=== PATIENT | male | born 1930 | race Caucasian/White ===

== ENCOUNTER 2019-06-13 13:51 | Emergency (ER) | payer MEDICARE ==
--- NOTE | 2019-06-13 15:41 | RAD ---
RIGHT FEMUR: 06/13/19 Four views. HISTORY: Trauma. Right hip prosthesis. Prosthesis appears adequately positioned. No evidence of fracture. Degenerative change at the knee. IMPRESSION: No acute abnormality. POS: OFF
--- NOTE | 2019-06-13 15:43 | RAD ---
RIGHT KNEE: 06/13/19 HISTORY: Trauma. Degenerative changes at the knee. Loss of medial joint space. Degenerative spurring from all compartm ents. No joint effusion. No fracture. The bones show prominent osteopenia. A mottled appearance of the proximal tibia and fibula is especia lly pronounced. Chronic infiltrative changes such as multiple myeloma are considerations. IMPRESSION: No acute process. Abnormal mottled appearance of the proximal tibia. Recommend clinical correlation. POS: OFF
--- NOTE | 2019-06-13 15:47 | RAD ---
LEFT FEMUR: 06/13/19 Total of four views. HISTORY: Trauma. Left hip prosthesis appears adequate position. No fracture. No osseous abnormality. IMPRESSION: No acute findings. POS: OFF
--- NOTE | 2019-06-13 15:48 | RAD ---
AP PELVIS: 06/13/19 HISTORY: Trauma. Bilateral hip prostheses appear adequately positioned. Pelvis appears intact. No osseous abnormality. IMPRESSION: No acute findings. POS: OFF
== END 2019-06-13 17:55 | disposition home or self-care (01) ==
LOC: ERS 13:51
DX: M79.661 Pain in right lower leg (principal); M25.561 Pain in right knee; D64.9 Anemia, unspecified; N40.0 Benign prostatic hyperplasia without lower urinary tract symptoms; I10 Essential (primary) hypertension; E11.9 Type 2 diabetes mellitus without complications; Z79.899 Other long term (current) drug therapy; Z79.84 Long term (current) use of oral hypoglycemic drugs; W05.0XXA Fall from non-moving wheelchair, initial encounter
CPT/HCPCS: 72170

== ENCOUNTER 2019-09-04 14:35 | Emergency (ER) | payer MEDICARE ==
--- NOTE | 2019-09-04 16:09 | CT ---
CT BRAIN WITHOUT CONTRAST: HISTORY:Altered mental status COMPARISON:None FINDINGS: There are foci of decreased attenuation in the periventricular white matter, consistent with chronic small vessel ischemic disease. No evidence of acute infarct, hemorrhage, midline shift or abnormal extra-axial fluid collections is seen. The ventricular size is appropriate and the basilar cisterns are patent. The bony calvarium is intact. The visualized paranasal sinuses and mastoid air cells are well aerated. IMPRESSION: No CT evidence of acute intracranial process.
--- NOTE | 2019-09-04 16:12 | RAD ---
EXAM: Single view of the chest HISTORY: Altered mental status COMPARISON: None FINDINGS: Single view of the chest shows a normal sized cardiomediastinal silhouette. There is no zee dence of consolidation, mass, or pleural effusion. The bones are unremarkable. IMPRESSION: No evidence of acute cardiopulmonary disease
--- NOTE | 2019-09-04 16:13 | RAD ---
Exam: Single view of the pelvis HISTORY: Altered mental status and fall COMPARISON: 06/13/2019 FINDINGS: A single view the pelvis shows no evidence of acute fracture or dislocation. The patient moss s bilateral hip prostheses without perihardware lucency. IMPRESSION: No evidence of acute osseous abnormality.
[2019-09-04 17:18] LABS: Bilirubin Negative (Negative); Blood, Urine Negative (Negative); Clarity Clear (Clear); Glucose, Urine (Dipstick) Normal (Negative); Leukocyte Negative Leu/uL (Negative); Nitrite Negative (Negative); Protein, Urine (Dipstick) Negative (Neg-Trace); Urobilinogen Normal mg/dL (Less than 2)
[2019-09-04 17:26] LABS: #Eosinphils 0.2 thou/uL (0.0-0.7); #Lymphocytes 1.8 thou/uL (1.20-3.40); #Monocytes 0.4 thou/uL (0.11-0.59); #Neutrophils 3.3 thou/uL (1.40-6.50); %Basophils 0.2 % (0.0-1.0); %Eosinophils 3.3 % (0.0-10.0); %Lymphocytes 31.3 % (21.0-51.0); %Monocytes 7.6 % (0.0-10.0); %Neutrophils 57.6 % (42.0-75.0); Hemoglobin 11.4 g/dL (14.0-18.0); Mean Corpuscular HGB CONC 32.6 g/dL (32.0-36.0); Mean Corpuscular Hemoglobin 29.6 pg (27.0-31.0); Mean Corpuscular Volume 90.8 fL (78.0-98.0); Mean Platelet Volume 6.2 fL (7.4-10.4); Platelet Count 123 thou/uL (130-400); RBC Distribution Width 14.9 % (11.5-14.5); Red Blood Cell (RBC) Count 3.85 mill/uL (4.70-6.10); White Blood Cell (WBC) Count 5.7 thou/uL (4.8-10.8)
[2019-09-04 17:50] LABS: ALT (SGPT) 7 U/L (8-55); AST (SGOT) 11 U/L (5-34); Albumin 3.5 g/dL (3.4-4.8); Alkaline Phosphatase 62 U/L (40-110); Anion Gap 8 mmol/L (10-20); BUN (Urea Nitrogen) 16 mg/dL (8.4-25.7); Bilirubin, Total 0.3 mg/dL (0.2-1.2); CK (CPK) 35 U/L (30-200); Calc. Creatinine Clearance 0 mL/min (70-130); Calcium 9.1 mg/dL (7.8-10.44); Carbon Dioxide 28 mmol/L (23-31); Chloride 107 mmol/L (98-107); Estimated GFR-MDRD 69; Globulin 3.1 g/dL (2.4-3.5); Glucose 143 mg/dL (83-110); Magnesium 1.8 mg/dL (1.6-2.6); Protein, Total 6.6 g/dL (5.8-8.1); Sodium 139 mmol/L (136-145)
== END 2019-09-04 18:33 | disposition home or self-care (01) ==
LOC: ERS 14:35
DX: R44.3 Hallucinations, unspecified (principal); D64.9 Anemia, unspecified; I10 Essential (primary) hypertension; E11.51 Type 2 diabetes mellitus with diabetic peripheral angiopathy without gangrene; E55.9 Vitamin D deficiency, unspecified
CPT/HCPCS: 36415; 51701; 70450; 71045; 72170; 80053; 81003; 82550; 83735; 85025; 93005

== ENCOUNTER 2019-09-07 15:48 | Outpatient (CLI) | payer MEDICARE ==
--- NOTE | 2019-09-07 16:46 | RAD ---
XR Bone Survey Adult STANDARD Cervical spine 1 view, thoracic spine one view, lumbar spine one view, pelvis one view, right hip 1 v iew, right femur 1 view, left femur, one view, left hip 1 view, right tibia 1 view, left tibia 1 view, of formed 1 view, left upper arm 1 view, right upper arm 1 view, right forearm 1 view History: Multiple myeloma Comparison: Pelvis radiograph August 6019 Findings: Cervical and thoracic spine are without abnormal lytic focus. 40% height loss of the L1 essence tebral body with mild dextro scoliosis lumbar spine. Multilevel degenerative disc space disease. Bilateral hip arthroplasties are in place. Mild enthesopathic change of the right iliopsoas tendon. There is a cortical lucency of the medial margin mid right tibial diaphysis. Multiple small intramedu llary lucencies of the distal left tibial metadiaphysis. Numerous cortical and medullary lucencies of the distal left radial metadiaphysis. Same is true for t he distal right radial and ulnar metadiaphyses. Advanced degenerative disc space disease throughout the cervical spine with facet arthropathy. No magen varial lucencies are appreciated. Impression: 1. Bilateral distal radial cortical and medullary lucencies not definitively multiple myeloma and cou ld be sequelae of demineralization given its relative symmetric appearance. 2. Single small suspicious lytic focus within the right medial mid tibial cortex.
== END 2019-09-07 15:49 | disposition home or self-care (01) ==
LOC: BICRAD 15:48
PROVIDERS: ATTEND Internal Medicine Hematology & Oncology
DX: C90.00 Multiple myeloma not having achieved remission (principal)
CPT/HCPCS: 36415; 77075; 80048; 82232; 83036; 83883; 84165

== ENCOUNTER 2020-02-10 17:53 | Inpatient (IN) | payer MEDICARE ==
[2020-02-10 18:44] LABS: #Eosinphils 0.1 thou/uL (0.0-0.7); #Lymphocytes 1.5 thou/uL (1.20-3.40); #Monocytes 0.7 thou/uL (0.11-0.59); #Neutrophils 7.3 thou/uL (1.40-6.50); %Basophils 0.1 % (0.0-1.0); %Eosinophils 0.7 % (0.0-10.0); %Lymphocytes 15.9 % (21.0-51.0); %Monocytes 6.9 % (0.0-10.0); %Neutrophils 76.4 % (42.0-75.0); Hemoglobin 13.9 g/dL (14.0-18.0); Mean Corpuscular HGB CONC 32.4 g/dL (32.0-36.0); Mean Corpuscular Hemoglobin 30.5 pg (27.0-31.0); Mean Corpuscular Volume 94.2 fL (78.0-98.0); Mean Platelet Volume 6.8 fL (7.4-10.4); Platelet Count 136 thou/uL (130-400); RBC Distribution Width 11.8 % (11.5-14.5); Red Blood Cell (RBC) Count 4.54 mill/uL (4.70-6.10); White Blood Cell (WBC) Count 9.6 thou/uL (4.8-10.8)
[2020-02-10 18:53] LABS: Bacteria/HPF None Seen HPF (None Seen); Bilirubin Negative (Negative); Blood, Urine Negative (Negative); Clarity Clear (Clear); Glucose, Urine (Dipstick) Normal (Negative); Leukocyte 25 Leu/uL (Negative); Nitrite Negative (Negative); Protein, Urine (Dipstick) 20 mg/dL (Neg-Trace); RBC/HPF 0-3 HPF (0-3); Squamous Epithelial None Seen HPF (0-3); Urobilinogen Normal mg/dL (Less than 2); WBC/HPF 0-3 HPF (0-3)
[2020-02-10 19:05] LABS: ALT (SGPT) 12 U/L (8-55); AST (SGOT) 16 U/L (5-34); Albumin 3.8 g/dL (3.4-4.8); Alkaline Phosphatase 72 U/L (40-110); Anion Gap 14 mmol/L (10-20); BUN (Urea Nitrogen) 17 mg/dL (8.4-25.7); Bilirubin, Total 0.6 mg/dL (0.2-1.2); Calc. Creatinine Clearance 0 mL/min (70-130); Calcium 9.4 mg/dL (7.8-10.44); Carbon Dioxide 25 mmol/L (23-31); Chloride 104 mmol/L (98-107); Estimated GFR-MDRD 57; Globulin 3.2 g/dL (2.4-3.5); Glucose 130 mg/dL (83-110); Sodium 139 mmol/L (136-145)
--- NOTE | 2020-02-10 19:08 | RAD ---
LEFT HIP TWO VIEWS: 02/10/20 INDICATIONS: Left hip pain. COMPARISON: None. FINDINGS: There is a left hip endoprosthesis in place. There is moderate degenerative change involving the left acetabulum. No acute fracture is evident. IMPRESSION: Left hip endoprosthesis. No acute fracture. Moderate degenerative change of the left acetabulum. POS: BH
--- NOTE | 2020-02-10 19:10 | RAD ---
CHEST ONE VIEW: 02/10/20 HISTORY: Altered mental status. COMPARISON: Radiograph 2019. FINDINGS: Pulmonary arteries are dilated. Heart size is enlarged. No pneumothorax. Likely trace effusions. Mild pulmonary venous congestion. IMPRESSION: 1. Cardiomegaly with small effusions and mild pulmonary venous congestion. 2. Pulmonary hypertension. POS: HOME
[2020-02-10 19:20] LABS: Magnesium 1.8 mg/dL (1.6-2.6)
--- NOTE | 2020-02-10 19:42 | CT ---
CT OF THE BRAIN WITHOUT CONTRAST: 02/10/20 INDICATIONS: Altered mental status in an 89-year-old male. COMPARISON: Prior exam dated September 04, 2019. FINDINGS: There is generalized cerebral and cerebellar atrophy with moderate chronic small vessel white matter ischemic change. Septum pellucidum and third ventricle appear midline. No definite acute infarct, hem orrhage, or hydrocephalus is present. Mastoid air cells and paranasal sinuses are clear. Skull is int act. IMPRESSION: No acute intracranial abnormality. POS: BH
[2020-02-10 23:23] LABS: Troponin I Less than 0.010 ng/mL (< 0.028)
[2020-02-11 00:03] VITALS: BMI 26.8
[2020-02-11] MEDS ORDERED: cloNIDine 0.1 MG TAB PO PRN (01:05)
[2020-02-11] MEDS ORDERED: hydrALAZINE 20 MG/ML VIAL SLOW IVP PRN (01:05)
[2020-02-11] MEDS ORDERED: Ondansetron PF 4 MG/2 ML Vial IVP PRN (01:05)
[2020-02-11] MEDS ORDERED: Morphine 2 MG/ML SYRINGE SLOW IVP PRN (01:05)
[2020-02-11] MEDS ORDERED: Labetalol HCl 100 MG/20 ML VIAL SLOW IVP PRN (01:05)
[2020-02-11] MEDS ORDERED: Promethazine HCl 12.5 MG in Sodium Chloride 0.9% 50 ML IVPB PRN (01:05)
[2020-02-11] MEDS ORDERED: Dextrose 5% in Water 1,000 ML IV PRN (01:06)
[2020-02-11] MEDS ORDERED: Dextrose 50% Abboject 50 ML SYRINGE SLOW IVP PRN (01:06)
[2020-02-11] MEDS ORDERED: HYDROcodone/Acetaminophen 5/325 mg Tablet PO PRN (01:07)
[2020-02-11] MEDS ORDERED: Bisacodyl 5 MG TAB PO PRN (01:07)
[2020-02-11] MEDS ORDERED: Acetaminophen 325 MG TAB PO PRN (01:07)
[2020-02-11] MEDS ORDERED: Guaifenesin DM 100-10/5 ML UDCUP PO PRN (01:07)
[2020-02-11] MEDS ORDERED: Sodium Chloride 0.9% 1,000 ML IV SCH (01:15)
--- NOTE | 2020-02-11 01:15 | PDOC.HHP ---
Hospitalist HPI - History of Present Illness Altered mental status History of Present Illness: Patient is an 89 year old male with PMH diabetes, dementia, PVD, BPH, HTN who presents to ED for altered mental status and fall. Lg is a resident at [facility] and experienced a fall in bathroom with possible head trauma, he was found to be lethargic and unable to recount events. He is on [facility] ( keflex[facility], also has had on and off diarrhea for a few weeks per [facility] notes reviewed. Patient evaluated in ED, UA no longer shows UTI (not specific since already on ABX). On my exam patient is AOx1 , speaking but confused, not aware of situation currently in. Patient to be admitted for fall, UTI, encephalopathy. Hospitalist ROS - Review of Systems ROS unobtainable: due to mental status Hospitalist History - Past Medical History Other Medical History: Notes: anemia, PVD, vit d deficiency, BPH, HTN, DM type 2, Decub to L buttock, Flu vaccine not up to date, Tetanus not up to date, Pneumococcal vaccine up to date. verified with [place] paperwork 02/10/2020. - Past Surgical History Other Surgical History: B hip surgery. verified with [facility] paperwork 02/10/2020. - Family History Family History: reports: no pertinent history - Social History Other Social History: Patient denies alcohol use, Patient denies drug use, Patient has no smoking history, Lives in senior living care facility, Name of institution [facility]. verified 02/10/2020. - Exam General Appearance: NAD, awake alert General - other findings: altered mental status Eye: PERRL, anicteric sclera ENT: normocephalic atraumatic, no oropharyngeal lesions, moist mucosa Neck: supple, symmetric, no JVD, no thyromegaly, no lymphadenopathy, no carotid bruit Heart: RRR, no murmur, no gallops, no rubs, normal peripheral pulses Respiratory: CTAB, no wheezes, no rales, no ronchi, normal chest expansion, no tachypnea, normal percussion Gastrointestinal: soft, non-tender, non-distended, normal bowel sounds, no palpable masses, no hepatomegaly, no splenomegaly, no bruit Extremities: no cyanosis, no clubbing, no edema Skin: normal turgor, no lesions, no rashes Skin - other findings: stg 1 ulcer buttock Neurological: cranial nerve grossly intact, normal sensation to touch, no weakness, no focal deficits, no new deficit Musculoskeletal: normal tone, normal strength, no muscle wasting Psychiatric: normal affect, normal behavior, A&O x 3 Hospitalist Results - Labs Result Diagrams: 02/10/20 18:37 02/10/20 18:37 Lab results: WBC 9.6 thou/uL (4.8-10.8) 02/10/20 18:37 Hgb 13.9 g/dL (14.0-18.0) L 02/10/20 18:37 Hct 42.7 % (42.0-52.0) 02/10/20 18:37 MCV 94.2 fL (78.0-98.0) 02/10/20 18:37 Plt Count 136 thou/uL (130-400) 02/10/20 18:37 Neutrophils % 76.4 % (42.0-75.0) H 02/10/20 18:37 Sodium 139 mmol/L (136-145) 02/10/20 18:37 Potassium 4.0 mmol/L (3.5-5.1) 02/10/20 18:37 Chloride 104 mmol/L (98-107) 02/10/20 18:37 Carbon Dioxide 25 mmol/L (23-31) 02/10/20 18:37 BUN 17 mg/dL (8.4-25.7) 02/10/20 18:37 Creatinine 1.21 mg/dL (0.7-1.3) 02/10/20 18:37 Glucose 130 mg/dL (83-110) H 02/10/20 18:37 Calcium 9.4 mg/dL (7.8-10.44) 02/10/20 18:37 Total Bilirubin 0.6 mg/dL (0.2-1.2) 02/10/20 18:37 AST 16 U/L (5-34) 02/10/20 18:37 ALT 12 U/L (8-55) 02/10/20 18:37 Alkaline Phosphatase 72 U/L (40-110) 02/10/20 18:37 Ammonia 29 umol/L (18-72) 02/10/20 20:43 Creatine Kinase 48 U/L (30-200) 02/10/20 18:37 Troponin I Less than 0.010 ng/mL (< 0.028) 02/10/20 22:50 Serum Total Protein 7.0 g/dL (5.8-8.1) 02/10/20 18:37 Albumin 3.8 g/dL (3.4-4.8) 02/10/20 18:37 Urine Ketones Negative mg/dL (Negative) 02/10/20 18:30 Urine Blood Negative (Negative) 02/10/20 18:30 Urine Nitrite Negative (Negative) 02/10/20 18:30 Ur Leukocyte Esterase 25 Michelle/uL (Negative) 02/10/20 18:30 Urine RBC 0-3 HPF (0-3) 02/10/20 18:30 Urine WBC 0-3 HPF (0-3) 02/10/20 18:30 Ur Squamous Epith Cells None Seen HPF (0-3) 02/10/20 18:30 Urine Bacteria None Seen HPF (None Seen) 02/10/20 18:30 Additional comment: VITAL SIGNS Wed February 10, 2020 22:23 CHIQUIS Almaraz, Ayde BP: 149/79 Pulse: 89 Resp: 20 Temp: 99.1 (Oral) Pain: 0 O2 sat: 96 on (Room Air) Time: 02/10/2020 22:23. - EKG Interpretation EKG: NSR 78 bpm, nonspecific ST abnormalities Hospitalist H&P A/P - Plan Plan: Patient is an 89 year old male with PMH diabetes, dementia, PVD, BPH, HTN who presents to ED for altered mental status and fall. # UTI - UA negative but if studies performed at [facility] can presume this is an aspect of what is happening, send culture and start abx # metabolic encephalopathy - presumed secondary to UTI, continue treatment # fall - presumed due to UTI, follow final CT head, anticoag continued for now # DM - SSI, continue glipizide # HTN - continue home meds, PRNs in chart # anticoagulated status - unsure why on anticoag as afib or other similar dx not in [facility] records,continue xarelto for now and can make [facility] decision on risks/benefits with primary care once back in [facility] care facility, no bleeding on head CT # debility - PT/OT and case management consulted to determine if SNF or other post acute care will be needed GI ppx - PPI DVT ppx - xarelto code - presume full, no DNR sent from [facility] or clarification and patient unable to answer currently contact ruben baabtunde daughter in law [phone],
[2020-02-11] MEDS: cefTRIAXone\\ROCEPHIN 1 GM in Sodium Chloride 0.9% 100 ML IVPB SCH (01:49)
[2020-02-11 02:20] LABS: Troponin I 0.022 ng/mL (< 0.028)
[2020-02-11 05:25] LABS: Anion Gap 15 mmol/L (10-20); BUN (Urea Nitrogen) 15 mg/dL (8.4-25.7); Calc. Creatinine Clearance 67 mL/min (70-130); Calcium 8.5 mg/dL (7.8-10.44); Carbon Dioxide 19 mmol/L (23-31); Chloride 107 mmol/L (98-107); Estimated GFR-MDRD 72; Glucose 126 mg/dL (83-110); Magnesium 1.7 mg/dL (1.6-2.6); Potassium 3.9 mmol/L (3.5-5.1); Sodium 137 mmol/L (136-145)
[2020-02-11 06:47] LABS: #Eosinphils 0.2 thou/uL (0.0-0.7); #Lymphocytes 1.5 thou/uL (1.20-3.40); #Monocytes 0.6 thou/uL (0.11-0.59); #Neutrophils 4.9 thou/uL (1.40-6.50); %Basophils 0.2 % (0.0-1.0); %Eosinophils 2.2 % (0.0-10.0); %Lymphocytes 20.5 % (21.0-51.0); %Monocytes 8.4 % (0.0-10.0); %Neutrophils 68.6 % (42.0-75.0); Hemoglobin 12.8 g/dL (14.0-18.0); Mean Corpuscular Hemoglobin 31.9 pg (27.0-31.0); Mean Corpuscular Volume 93.9 fL (78.0-98.0); Platelet Count 110 thou/uL (130-400); Platelet Morphology Comment Appears Decreased; RBC Distribution Width 11.8 % (11.5-14.5); RBC Morphology Normal; Red Blood Cell (RBC) Count 4.01 mill/uL (4.70-6.10); White Blood Cell (WBC) Count 7.2 thou/uL (4.8-10.8)
[2020-02-11] MEDS: Lisinopril 10 MG TAB PO SCH (09:30)
[2020-02-11] MEDS: Rivaroxaban 10 MG TAB PO SCH (09:30)
[2020-02-11] MEDS: Tamsulosin HCl 0.4 MG CAP PO SCH (09:32)
[2020-02-11] MEDS: glipiZIDE 5 MG TAB PO SCH ×2 (09:35→21:21)
[2020-02-11] MEDS: Ferrous Sulfate 325 MG TAB PO SCH (09:36)
[2020-02-11] MEDS: Pantoprazole 40 MG GRANULES PACKET PO SCH (09:36)
[2020-02-11] MEDS: Senokot S 8.6-50 MG TAB PO SCH ×2 (09:36→21:21)
[2020-02-11] MEDS: HumaLOG 300 UNITS/3 ML VIAL SC PRN (11:54)
[2020-02-11] MEDS: Mirtazapine 15 MG TAB PO SCH (21:21)
[2020-02-12] MEDS: cefTRIAXone\\ROCEPHIN 1 GM in Sodium Chloride 0.9% 100 ML IVPB SCH (01:58)
[2020-02-12 05:11] LABS: Anion Gap 14 mmol/L (10-20); BUN (Urea Nitrogen) 14 mg/dL (8.4-25.7); Calc. Creatinine Clearance 67 mL/min (70-130); Carbon Dioxide 20 mmol/L (23-31); Chloride 107 mmol/L (98-107); Estimated GFR-MDRD 72; Glucose 104 mg/dL (83-110); Magnesium 1.8 mg/dL (1.6-2.6); Potassium 3.7 mmol/L (3.5-5.1); Sodium 137 mmol/L (136-145)
[2020-02-12 05:37] LABS: Band 1 % (5-11); Eosinophils 4 % (0-10); Hemoglobin 12.9 g/dL (14.0-18.0); Hypochromia SLIGHT = 6-15 cells (100X) (0-5/hpf); Lymphocytes 17 % (21-51); MDiff Complete? YES; Mean Corpuscular HGB CONC 32.2 g/dL (32.0-36.0); Mean Corpuscular Hemoglobin 30.8 pg (27.0-31.0); Mean Corpuscular Volume 95.6 fL (78.0-98.0); Mean Platelet Volume 7.1 fL (7.4-10.4); Monocytes 9 % (0-10); Neutrophil 69 % (42-75); Platelet Count 113 thou/uL (130-400); Platelet Morphology Comment Appears Decreased; RBC Distribution Width 12.2 % (11.5-14.5); Red Blood Cell (RBC) Count 4.19 mill/uL (4.70-6.10); White Blood Cell (WBC) Count 6.1 thou/uL (4.8-10.8)
[2020-02-12] MEDS: glipiZIDE 5 MG TAB PO SCH ×2 (08:39→20:43)
[2020-02-12] MEDS: Ferrous Sulfate 325 MG TAB PO SCH (08:40)
[2020-02-12] MEDS: Tamsulosin HCl 0.4 MG CAP PO SCH (08:40)
[2020-02-12] MEDS: Lisinopril 10 MG TAB PO SCH (08:40)
[2020-02-12] MEDS: Rivaroxaban 10 MG TAB PO SCH (08:41)
[2020-02-12] MEDS: Senokot S 8.6-50 MG TAB PO SCH ×2 (08:41→20:43)
[2020-02-12] MEDS: Pantoprazole 40 MG GRANULES PACKET PO SCH (08:41)
--- NOTE | 2020-02-12 09:58 | PDOC.HOSPP ---
- Subjective Encounter Date: 02/12/20 Encounter Time: 09:35 Subjective: f/u for fall with suspected UTI on Rocephin. Nursing reports pt alert but remains confused, tolerating diet and vitals are stable. - Objective Vital Signs & Weight: Vital Signs (12 hours) Temp Pulse Resp BP Pulse Ox 02/12/20 07:52 98.3 F 63 18 149/69 H 95 02/12/20 04:32 98.1 F 71 16 147/68 H 97 02/11/20 23:56 98.6 F 85 18 140/72 94 L Weight Weight 198 lb I&O: 02/11/20 02/12/20 02/13/20 06:59 06:59 06:59 Intake Total 300 Output Total 450 Balance -150 Result Diagrams: 02/12/20 04:21 02/12/20 04:21 Additional Labs: Accuchecks 02/12/20 02/11/20 02/11/20 04:59 20:22 16:26 POC Glucose 122 H 138 H 120 H 02/11/20 10:36 POC Glucose 172 H Microbiology 02/05/20 12:00 Urine clean catch Urine Culture - Final Laboratory Tests 02/10/20 02/11/20 18:37 04:54 Plt Count 136 110 L Radiology Reviewed by me: Yes (CT brain - no acute process) EKG Reviewed by me: Yes (Tele - SR) Hospitalist ROS - Medication Medications: Active Medications Generic Name Dose Route Start Last Admin Trade Name Freq PRN Reason Stop Dose Admin Ferrous Sulfate 325 mg 02/11/20 09:00 02/12/20 08:40 Feosol PO 325 mg DAILY SHAYLA Administration Glipizide 10 mg 02/11/20 07:30 02/12/20 08:39 Glucotrol PO 10 mg DAILY-AC SHAYLA Administration Glipizide 5 mg 02/11/20 21:00 02/11/20 21:21 Glucotrol PO 5 mg HS SHAYLA Administration Ceftriaxone Sodium 1 gm/ 100 mls @ 200 mls/hr 02/11/20 02:00 02/12/20 01:58 Sodium Chloride IVPB 02/18/20 02:01 100 mls Q24HR SHAYLA Administration Insulin Human Lispro 0 units 02/11/20 01:06 02/11/20 11:54 Humalog SC 2 unit .MILD SLIDING SCALE PRN Administration Mild Correctional Scale Lisinopril 10 mg 02/11/20 09:00 02/12/20 08:40 Zestril PO 10 mg DAILY SHAYLA Administration Mirtazapine 15 mg 02/11/20 21:00 02/11/20 21:21 Remeron PO 15 mg HS SHAYLA Administration Pantoprazole Sodium 40 mg 02/11/20 09:00 02/12/20 08:41 Protonix PO 40 mg DAILY SHAYLA Administration Rivaroxaban 10 mg 02/11/20 09:00 02/12/20 08:41 Xarelto PO 10 mg DAILY SHAYLA Administration Senna/Docusate Sodium 1 tab 02/11/20 09:00 02/12/20 08:41 Senokot S PO 1 tab BID SHAYLA Administration Sodium Chloride 10 ml 02/11/20 09:00 02/12/20 08:41 Flush - Normal Saline IVF 10 ml Q12HR SHAYLA Administration Tamsulosin HCl 0.4 mg 02/11/20 09:00 02/12/20 08:40 Flomax PO 0.4 mg DAILY SHAYLA Administration - Exam General Appearance: NAD, awake alert Eye: PERRL, anicteric sclera ENT: normocephalic atraumatic, no oropharyngeal lesions Neck: supple, symmetric, no JVD, no thyromegaly, no lymphadenopathy Heart: RRR, no murmur, no gallops, no rubs, normal peripheral pulses Heart - other findings: S1, S2 Respiratory: CTAB, no wheezes, no rales, no ronchi, normal chest expansion Gastrointestinal: soft, non-tender, non-distended, normal bowel sounds, no palpable masses Extremities: no cyanosis, no clubbing, no edema Skin: normal turgor, no lesions Neurological: cranial nerve grossly intact, no new deficit Musculoskeletal: normal tone, generalized weakness Psychiatric: oriented to person Hosp A/P (1) Encephalopathy acute Code(s): G93.40 - ENCEPHALOPATHY, UNSPECIFIED Status: Acute Plan: Supportive mgmt, likely mild concussion, CT brain without acute process, baseline is A x O x 3 (2) CHI (closed head injury) Code(s): S09.90XA - UNSPECIFIED INJURY OF HEAD, INITIAL ENCOUNTER Status: Acute Plan: Suspect mild concussion after fall, supportive mgmt (3) Fall Code(s): W19.XXXA - UNSPECIFIED FALL, INITIAL ENCOUNTER Status: Acute Plan: PT/OT evaluation for functional assessment, fall risk precautions (4) UTI (urinary tract infection) Status: Acute Plan: resolving, continue Rocephin another 24h (5) Chronic anticoagulation Code(s): Z79.01 - HALF-WAY (CURRENT) USE OF ANTICOAGULANTS Status: Chronic - Plan plan discussed w/ family, continue antibiotics, 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
[2020-02-12] MEDS: HumaLOG 300 UNITS/3 ML VIAL SC PRN (11:40)
[2020-02-12] MEDS: Mirtazapine 15 MG TAB PO SCH (20:43)
[2020-02-13] MEDS: cefTRIAXone\\ROCEPHIN 1 GM in Sodium Chloride 0.9% 100 ML IVPB SCH (01:03)
[2020-02-13 05:19] LABS: #Eosinphils 0.2 thou/uL (0.0-0.7); #Lymphocytes 1.3 thou/uL (1.20-3.40); #Monocytes 0.6 thou/uL (0.11-0.59); #Neutrophils 3.5 thou/uL (1.40-6.50); %Basophils 0.3 % (0.0-1.0); %Eosinophils 3.1 % (0.0-10.0); %Lymphocytes 22.7 % (21.0-51.0); %Monocytes 10.1 % (0.0-10.0); %Neutrophils 63.8 % (42.0-75.0); Hemoglobin 12.5 g/dL (14.0-18.0); Mean Corpuscular HGB CONC 31.4 g/dL (32.0-36.0); Mean Corpuscular Hemoglobin 29.9 pg (27.0-31.0); Mean Corpuscular Volume 95.1 fL (78.0-98.0); Mean Platelet Volume 7.3 fL (7.4-10.4); Platelet Count 116 thou/uL (130-400); RBC Distribution Width 12.2 % (11.5-14.5); Red Blood Cell (RBC) Count 4.19 mill/uL (4.70-6.10); White Blood Cell (WBC) Count 5.5 thou/uL (4.8-10.8)
[2020-02-13 05:40] LABS: Anion Gap 12 mmol/L (10-20); BUN (Urea Nitrogen) 20 mg/dL (8.4-25.7); Calc. Creatinine Clearance 64 mL/min (70-130); Calcium 8.5 mg/dL (7.8-10.44); Carbon Dioxide 24 mmol/L (23-31); Chloride 106 mmol/L (98-107); Estimated GFR-MDRD 68; Glucose 124 mg/dL (83-110); Magnesium 1.8 mg/dL (1.6-2.6); Potassium 3.8 mmol/L (3.5-5.1); Sodium 138 mmol/L (136-145)
[2020-02-13] MEDS: glipiZIDE 5 MG TAB PO SCH ×2 (11:03→22:13)
[2020-02-13] MEDS: Lisinopril 10 MG TAB PO SCH (11:04)
[2020-02-13] MEDS: Senokot S 8.6-50 MG TAB PO SCH ×2 (11:04→22:13)
[2020-02-13] MEDS: Tamsulosin HCl 0.4 MG CAP PO SCH (11:04)
[2020-02-13] MEDS: Ferrous Sulfate 325 MG TAB PO SCH (11:04)
[2020-02-13] MEDS: Pantoprazole 40 MG GRANULES PACKET PO SCH (11:04)
[2020-02-13] MEDS: Rivaroxaban 10 MG TAB PO SCH (11:04)
[2020-02-13] MEDS: HumaLOG 300 UNITS/3 ML VIAL SC PRN (11:05)
[2020-02-13] MEDS ORDERED: HumaLOG 300 UNITS/3 ML VIAL SC PRN (17:37)
--- NOTE | 2020-02-13 17:40 | PDOC.HOSPP ---
- Subjective Encounter Date: 02/13/20 Encounter Time: 15:00 Subjective: Patient seen and examined for AMS. Remains confused. No overnight events - Objective Vital Signs & Weight: Vital Signs (12 hours) Temp Pulse Resp BP Pulse Ox 02/13/20 15:25 98 F 73 20 130/68 97 02/13/20 11:40 97.9 F 73 20 153/70 H 94 L 02/13/20 08:12 97.8 F 62 20 134/63 97 Weight Weight 198 lb I&O: 02/12/20 02/13/20 02/14/20 06:59 06:59 06:59 Intake Total 300 250 Output Total 450 Balance -150 250 Result Diagrams: 02/13/20 04:50 02/13/20 04:50 Additional Labs: Accuchecks 02/13/20 02/13/20 02/13/20 16:49 10:47 05:36 POC Glucose 120 H 183 H 134 H 02/12/20 20:06 POC Glucose 153 H EKG Reviewed by me: Yes (Tele SR) Hospitalist ROS - Review of Systems ROS unobtainable: due to mental status - Medication Medications: Active Medications Generic Name Dose Route Start Last Admin Trade Name Freq PRN Reason Stop Dose Admin Ferrous Sulfate 325 mg 02/11/20 09:00 02/13/20 11:04 Feosol PO 325 mg DAILY SHAYLA Administration Glipizide 10 mg 02/11/20 07:30 02/13/20 11:03 Glucotrol PO 10 mg DAILY-AC SHAYLA Administration Glipizide 5 mg 02/11/20 21:00 02/12/20 20:43 Glucotrol PO 5 mg HS SHAYLA Administration Ceftriaxone Sodium 1 gm/ 100 mls @ 200 mls/hr 02/11/20 02:00 02/13/20 01:03 Sodium Chloride IVPB 02/18/20 02:01 100 mls Q24HR SHAYLA Administration Insulin Human Lispro 0 units 02/11/20 01:06 02/13/20 11:05 Humalog SC 2 unit .MILD SLIDING SCALE PRN Administration Mild Correctional Scale Lisinopril 10 mg 02/11/20 09:00 02/13/20 11:04 Zestril PO 10 mg DAILY SHAYLA Administration Mirtazapine 15 mg 02/11/20 21:00 05/15/20 20:43 Remeron PO 15 mg HS SHAYLA Administration Pantoprazole Sodium 40 mg 02/11/20 09:00 02/13/20 11:04 Protonix PO 40 mg DAILY SHAYLA Administration Rivaroxaban 10 mg 02/11/20 09:00 02/13/20 11:04 Xarelto PO 10 mg DAILY SHAYLA Administration Senna/Docusate Sodium 1 tab 02/11/20 09:00 02/13/20 11:04 Senokot S PO 1 tab BID SHAYLA Administration Sodium Chloride 10 ml 02/11/20 09:00 02/13/20 11:05 Flush - Normal Saline IVF 10 ml Q12HR SHAYLA Administration Tamsulosin HCl 0.4 mg 02/11/20 09:00 02/13/20 11:04 Flomax PO 0.4 mg DAILY SHAYLA Administration - Exam General Appearance: NAD Neck: supple, no JVD Heart: RRR, no gallops Respiratory: no wheezes, no rales Gastrointestinal: soft, non-tender, no guarding, no rigidity Extremities: no cyanosis, no clubbing Psychiatric: not oriented Hosp A/P - Plan PT/OT Toxic Metabolic Encephalopathy UTI - POA PVD Chronic anticoagulation Mechanical fall HTN BPH PLAN: Cont IV Ceftriaxone Check postvoid residuals Cont Flomax Cont other meds as above SNF eval AM labs
[2020-02-13] MEDS: Mirtazapine 15 MG TAB PO SCH (22:13)
[2020-02-14] MEDS: cefTRIAXone\\ROCEPHIN 1 GM in Sodium Chloride 0.9% 100 ML IVPB SCH (03:29)
[2020-02-14 04:44] LABS: #Eosinphils 0.3 thou/uL (0.0-0.7); #Lymphocytes 1.7 thou/uL (1.20-3.40); #Monocytes 0.5 thou/uL (0.11-0.59); #Neutrophils 2.7 thou/uL (1.40-6.50); %Basophils 0.3 % (0.0-1.0); %Eosinophils 5.4 % (0.0-10.0); %Lymphocytes 31.7 % (21.0-51.0); %Monocytes 10.2 % (0.0-10.0); %Neutrophils 52.4 % (42.0-75.0); Hemoglobin 11.8 g/dL (14.0-18.0); Mean Corpuscular HGB CONC 32.1 g/dL (32.0-36.0); Mean Corpuscular Hemoglobin 30.5 pg (27.0-31.0); Mean Corpuscular Volume 95.1 fL (78.0-98.0); Mean Platelet Volume 6.9 fL (7.4-10.4); Platelet Count 106 thou/uL (130-400); Red Blood Cell (RBC) Count 3.87 mill/uL (4.70-6.10); White Blood Cell (WBC) Count 5.2 thou/uL (4.8-10.8)
[2020-02-14 05:06] LABS: ALT (SGPT) Less than 7 U/L (8-55); AST (SGOT) 12 U/L (5-34); Albumin 3.1 g/dL (3.4-4.8); Alkaline Phosphatase 57 U/L (40-110); Anion Gap 10 mmol/L (10-20); BUN (Urea Nitrogen) 18 mg/dL (8.4-25.7); Bilirubin, Total 0.4 mg/dL (0.2-1.2); Calc. Creatinine Clearance 70 mL/min (70-130); Calcium 8.4 mg/dL (7.8-10.44); Carbon Dioxide 23 mmol/L (23-31); Chloride 108 mmol/L (98-107); Estimated GFR-MDRD 75; Globulin 2.8 g/dL (2.4-3.5); Glucose 110 mg/dL (83-110); Magnesium 1.7 mg/dL (1.6-2.6); Potassium 3.4 mmol/L (3.5-5.1); Protein, Total 5.9 g/dL (5.8-8.1); Sodium 138 mmol/L (136-145)
[2020-02-14] MEDS ORDERED: Magnesium 2 GM/50 ML 2 GM in Premix Bag 1 BAG IVPB SCH (08:00)
[2020-02-14] MEDS: glipiZIDE 5 MG TAB PO SCH ×2 (09:36→21:21)
[2020-02-14] MEDS: Ferrous Sulfate 325 MG TAB PO SCH (09:36)
[2020-02-14] MEDS: Saccharomyces boulardii 250 MG CAP PO SCH (09:36)
[2020-02-14] MEDS: Lisinopril 10 MG TAB PO SCH (09:37)
[2020-02-14] MEDS: Multivit, Therapeutic 1 TAB PO SCH (09:37)
[2020-02-14] MEDS: Tamsulosin HCl 0.4 MG CAP PO SCH (09:37)
[2020-02-14] MEDS: Pantoprazole 40 MG GRANULES PACKET PO SCH (09:37)
[2020-02-14] MEDS: Cyanocobalamin (Vitamin B-12) 1,000 MCG TAB PO SCH (09:37)
[2020-02-14] MEDS: Potassium Chloride 20 MEQ TAB PO SCH ×2 (09:37→16:24)
[2020-02-14] MEDS: Rivaroxaban 10 MG TAB PO SCH (09:37)
[2020-02-14] MEDS: Senokot S 8.6-50 MG TAB PO SCH ×2 (09:37→21:21)
--- NOTE | 2020-02-14 13:28 | PDOC.HOSPP ---
- Subjective Encounter Date: 02/14/20 Encounter Time: 10:15 Subjective: Patient seen and examined for AMS. Remains confused. No new complaints. No overnight events - Objective Vital Signs & Weight: Vital Signs (12 hours) Temp Pulse Resp BP Pulse Ox 02/14/20 11:10 98.6 F 73 16 139/65 95 02/14/20 08:00 96 02/14/20 07:15 98.3 F 96 18 122/61 96 02/14/20 04:39 97.7 F 67 16 133/62 95 Weight Weight 198 lb I&O: 02/13/20 02/14/20 02/15/20 06:59 06:59 06:59 Intake Total 250 238 Balance 250 238 Result Diagrams: 02/14/20 04:19 02/14/20 04:19 Additional Labs: Accuchecks 02/14/20 02/13/20 02/13/20 05:56 20:36 16:49 POC Glucose 138 H 174 H 120 H EKG Reviewed by me: Yes (Tele SR) Hospitalist ROS - Review of Systems Respiratory: denies: cough, dry, shortness of breath, hemoptysis, SOB with excertion, pleuritic pain, sputum, wheezing, other Cardiovascular: denies: chest pain, palpitations, orthopnea, paroxysmal noc. dyspnea, edema, light headedness, other Gastrointestinal: denies: nausea, vomiting, abdominal pain, diarrhea, constipation, melena, hematochezia, other - Medication Medications: Active Medications Generic Name Dose Route Start Last Admin Trade Name Freq PRN Reason Stop Dose Admin Cyanocobalamin 1,000 mcg 02/14/20 09:00 02/14/20 09:37 Vitamin B-12 PO 1,000 mcg DAILY SHAYLA Administration Ferrous Sulfate 325 mg 02/11/20 09:00 02/14/20 09:36 Feosol PO 325 mg DAILY SHAYLA Administration Glipizide 10 mg 02/11/20 07:30 02/14/20 09:36 Glucotrol PO 10 mg DAILY-AC SHAYLA Administration Glipizide 5 mg 02/11/20 21:00 02/13/20 22:13 Glucotrol PO 5 mg HS SHAYLA Administration Ceftriaxone Sodium 1 gm/ 100 mls @ 200 mls/hr 02/11/20 02:00 02/14/20 03:29 Sodium Chloride IVPB 02/18/20 02:01 100 mls Q24HR SHAYLA Administration Insulin Human Lispro 0 units 02/11/20 01:06 02/13/20 11:05 Humalog SC 2 unit .MILD SLIDING SCALE PRN Administration Mild Correctional Scale Lisinopril 10 mg 02/11/20 09:00 02/14/20 09:37 Zestril PO 10 mg DAILY SHAYLA Administration Mirtazapine 15 mg 02/11/20 21:00 02/13/20 22:13 Remeron PO 15 mg HS SHAYLA Administration Multivitamins 1 tab 02/14/20 09:00 02/14/20 09:37 Theragran PO 1 tab DAILY SHAYLA Administration Pantoprazole Sodium 40 mg 02/11/20 09:00 02/14/20 09:37 Protonix PO 40 mg DAILY SHAYLA Administration Potassium Chloride 20 meq 02/14/20 08:00 02/14/20 09:37 K-Dur PO 20 meq BID-WM SHAYLA Administration Rivaroxaban 10 mg 02/11/20 09:00 02/14/20 09:37 Xarelto PO 10 mg DAILY SHAYLA Administration Saccharomyces Boulardii 250 mg 02/14/20 09:00 02/14/20 09:36 Florastor PO 250 mg DAILY SHAYLA Administration Senna/Docusate Sodium 1 tab 02/11/20 09:00 02/14/20 09:37 Senokot S PO 1 tab BID SHAYLA Administration Sodium Chloride 10 ml 02/11/20 09:00 02/14/20 09:37 Flush - Normal Saline IVF 10 ml Q12HR SHAYLA Administration Tamsulosin HCl 0.4 mg 02/11/20 09:00 02/14/20 09:37 Flomax PO 0.4 mg DAILY SHAYLA Administration - Exam General Appearance: NAD Heart: RRR, no gallops Respiratory: no wheezes, no ronchi Gastrointestinal: non-tender, non-distended, normal bowel sounds Extremities: no cyanosis, no clubbing Neurological: no new deficit Psychiatric: oriented to person Hosp A/P - Plan DVT proph w/SCDs Toxic Metabolic Encephalopathy UTI - POA Hypokalemia Hypomagnesemia PVD Chronic anticoagulation Mechanical fall HTN BPH PLAN: Replace Potassium Replace Magnesium Cont IV Ceftriaxone postvoid residual monitoring Cont Flomax, Lisinopril, Remeron and other meds as above SNF eval pending AM labs No urine cultures sent on admission
[2020-02-14] MEDS: HumaLOG 300 UNITS/3 ML VIAL SC PRN (16:27)
[2020-02-14] MEDS: Mirtazapine 15 MG TAB PO SCH (21:21)
[2020-02-15] MEDS: cefTRIAXone\\ROCEPHIN 1 GM in Sodium Chloride 0.9% 100 ML IVPB SCH (01:38)
[2020-02-15 05:09] LABS: Anion Gap 9 mmol/L (10-20); BUN (Urea Nitrogen) 15 mg/dL (8.4-25.7); Calc. Creatinine Clearance 60 mL/min (70-130); Calcium 8.6 mg/dL (7.8-10.44); Carbon Dioxide 28 mmol/L (23-31); Chloride 107 mmol/L (98-107); Estimated GFR-MDRD 63; Glucose 117 mg/dL (83-110); Potassium 4.2 mmol/L (3.5-5.1); Sodium 140 mmol/L (136-145)
[2020-02-15] MEDS: Ferrous Sulfate 325 MG TAB PO SCH (09:02)
[2020-02-15] MEDS: Multivit, Therapeutic 1 TAB PO SCH (09:03)
[2020-02-15] MEDS: Potassium Chloride 20 MEQ TAB PO SCH ×2 (09:03→18:08)
[2020-02-15] MEDS: Cyanocobalamin (Vitamin B-12) 1,000 MCG TAB PO SCH (09:03)
[2020-02-15] MEDS: glipiZIDE 5 MG TAB PO SCH ×2 (09:03→21:34)
[2020-02-15] MEDS: Senokot S 8.6-50 MG TAB PO SCH ×2 (09:03→21:34)
[2020-02-15] MEDS: Lisinopril 10 MG TAB PO SCH (09:03)
[2020-02-15] MEDS: Rivaroxaban 10 MG TAB PO SCH (09:03)
[2020-02-15] MEDS: Saccharomyces boulardii 250 MG CAP PO SCH (09:03)
[2020-02-15] MEDS: Tamsulosin HCl 0.4 MG CAP PO SCH (09:03)
[2020-02-15] MEDS: Pantoprazole 40 MG GRANULES PACKET PO SCH (09:03)
[2020-02-15] MEDS: HumaLOG 300 UNITS/3 ML VIAL SC PRN (12:32)
--- NOTE | 2020-02-15 12:42 | MRI ---
MRI BRAIN WITHOUT CONTRAST: Date: 02/15/2020 COMPARISON: CT brain dated 02/10/2020. HISTORY: Altered mental status. Evaluate for stroke. TECHNIQUE: Multiplanar, multisequence MR images were obtained of the brain without contrast. FINDINGS: There is scattered foci of high FLAIR signal in subcortical and periventricular white matter, likely secondary to small vessel ischemic disease. No restricted diffusion is seen to suggest an acute infar ction. There is no evidence of hydrocephalus, intracranial hemorrhage, or extra-axial fluid collection. The expected flow-voids are present. The corpus callosum, pituitary, and craniocervical junction are unre markable. The calvarium and overlying soft tissues are unremarkable. Mucosal thickening is seen in the left max illary sinus. IMPRESSION: No evidence of acute intracranial abnormality. POS: [facility]
--- NOTE | 2020-02-15 12:58 | CON ---
DATE OF CONSULTATION: 02/15/2020 NEUROLOGY CONSULTATION REASON FOR CONSULTATION: Altered mental status. HISTORY OF PRESENT ILLNESS: Mr. Savage is an 89-year-old male with medical history significant for diabetes, dementia, benign prostatic hyperplasia, and hypertension, presented to the emergency room with altered mental status after a fall. The patient is a resident of [facility] and had a fall in the bathroom, during which he hit his head and was since then he has been lethargic and unable to provide above history. He has been on antibiotics for UTI, Keflex at the nursing facility and also noted to have diarrhea. The patient has been alert and oriented only to himself since he came to the hospital. Neurology was consulted for persistent confusional state. REVIEW OF SYSTEMS: Unobtainable due to mental status. PAST MEDICAL HISTORY: Diabetes, hypertension, benign prostatic hyperplasia, vitamin D deficiency, and anemia. PAST SURGICAL HISTORY: Bilateral hip surgery. FAMILY HISTORY: No significant family history. SOCIAL HISTORY: The patient is a resident of [facility]. He denies smoking, alcohol, or illegal drug use. - Objective Vital Signs & Weight: Vital Signs (12 hours) Temp Pulse Resp BP Pulse Ox 02/14/20 11:10 98.6 F 73 16 139/65 95 02/14/20 08:00 96 02/14/20 07:15 98.3 F 96 18 122/61 96 02/14/20 04:39 97.7 F 67 16 133/62 95 Weight Weight 198 lb I&O: 02/13/20 02/14/20 02/15/20 06:59 06:59 06:59 Intake Total 250 238 Balance 250 238 Additional Labs: Accuchecks 02/14/20 02/13/20 02/13/20 05:56 20:36 16:49 POC Glucose 138 H 174 H 120 H EKG Reviewed by me: Yes (Tele SR) - Medication Medications: Active Medications Generic Name Dose Route Start Last Admin Trade Name Freq PRN Reason Stop Dose Admin Cyanocobalamin 1,000 mcg 02/14/20 09:00 02/14/20 09:37 Vitamin B-12 PO 1,000 mcg DAILY SHAYLA Administration Ferrous Sulfate 325 mg 02/11/20 09:00 02/14/20 09:36 Feosol PO 325 mg DAILY SHAYLA Administration Glipizide 10 mg 02/11/20 07:30 02/14/20 09:36 Glucotrol PO 10 mg DAILY-AC SHAYLA Administration Glipizide 5 mg 02/11/20 21:00 02/13/20 22:13 Glucotrol PO 5 mg HS SHAYLA Administration Ceftriaxone Sodium 1 gm/ 100 mls @ 200 mls/hr 02/11/20 02:00 02/14/20 03:29 Sodium Chloride IVPB 02/18/20 02:01 100 mls Q24HR SHAYLA Administration Insulin Human Lispro 0 units 02/11/20 01:06 02/13/20 11:05 Humalog SC 2 unit .MILD SLIDING SCALE PRN Administration Mild Correctional Scale Lisinopril 10 mg 02/11/20 09:00 02/14/20 09:37 Zestril PO 10 mg DAILY SHAYLA Administration Mirtazapine 15 mg 02/11/20 21:00 02/13/20 22:13 Remeron PO 15 mg HS SHAYLA Administration Multivitamins 1 tab 02/14/20 09:00 02/14/20 09:37 Theragran PO 1 tab DAILY SHAYLA Administration Pantoprazole Sodium 40 mg 02/11/20 09:00 02/14/20 09:37 Protonix PO 40 mg DAILY SHAYLA Administration Potassium Chloride 20 meq 02/14/20 08:00 02/14/20 09:37 K-Dur PO 20 meq BID-WM SHAYLA Administration Rivaroxaban 10 mg 02/11/20 09:00 02/14/20 09:37 Xarelto PO 10 mg DAILY SHAYLA Administration Saccharomyces Boulardii 250 mg 02/14/20 09:00 02/14/20 09:36 Florastor PO 250 mg DAILY SHAYLA Administration Senna/Docusate Sodium 1 tab 02/11/20 09:00 02/14/20 09:37 Senokot S PO 1 tab BID SHAYLA Administration Sodium Chloride 10 ml 02/11/20 09:00 02/14/20 09:37 Flush - Normal Saline IVF 10 ml Q12HR SHAYLA Administration Tamsulosin HCl 0.4 mg 02/11/20 09:00 02/14/20 09:37 Flomax PO 0.4 mg DAILY SHAYLA Administration PHYSICAL EXAMINATION: GENERAL APPEARANCE: Awake, alert, follows commands and maintains eye contact. HEENT: Pupils are equal and reactive to light. Face symmetric. Normocephalic and atraumatic. NECK: Supple. HEART: Regular rate and rhythm. CHEST: Clear. ABDOMEN: Soft. EXTREMITIES: No cyanosis, clubbing, or edema. SKIN: No turgor. No lesions. But has one ulcer in the buttock. NEUROLOGIC: Mental status; the patient is alert and oriented to himself only. He does not know the month or the place. He does follow commands and maintain eye contact. Cranial nerves 2 through 12 intact. Motor, muscle tone and bulk are normal. Strength 5/5 bilaterally. Reflexes 2+ bilaterally. Sensory intact. Cerebellar, finger-nose testing intact. Gait not tested because of the patient' s safety reasons. LABORATORY DATA: I reviewed the labs which was essentially unremarkable. I reviewed the head CT, which did not reveal any acute intracranial process. ASSESSMENT AND PLAN: Mr. Jabari Savage is an 89-year-old male with medical history significant for diabetes, dementia, hypertension, benign prostatic hyperplasia, and consulted for altered mental status, status post fall, encephalopathy seems to be multifactorial including metabolic/infectious etiology, however, intracranial process cannot be completely ruled out. Recommend MRI of the brain to rule out acute intracranial pathology. Consider EEG if the MRI is negative. Neuro checks every 4 hours. Continue home medications. Continue medical management per primary team. Further recommendations depend on the results of the testing. We will continue to follow. Thank you for the consult. Job ID: [id number] MTDD
[2020-02-15] MEDS ORDERED: Magnesium 2 GM/50 ML 2 GM in Premix Bag 1 BAG IVPB SCH (13:15)
--- NOTE | 2020-02-15 16:38 | EEG ---
Referring Physician: Mihir HARLEY EEG # [id number] TEST TYPE: ROUTINE PORTABLE INPATIENT EEG REPORT: This EEG was performed using 24 channel [email or web address] video digital EEG machine with 24 disc electrodes. This was a routine EEG recording. BACKGROUND: The posterior background rhythm is 8.5-9 hertz. The background rhythm attenuates with eye opening and enhances with eye closure HYPERVENTILATION: Not performed PHOTIC STIMULATION: Bioccipital symmetric driving response observed. SLEEP: Drowsiness and sleep are observed. 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
--- NOTE | 2020-02-15 21:28 | CON ---
DATE OF CONSULTATION: 02/15/2020 REASON FOR CONSULTATION: Nonsustained ventricular tachycardia. HISTORY OF PRESENT ILLNESS: Mr. Savage is an 89-year-old man who was admitted to the hospital with altered mental status. He was found to have a urinary tract infection on previous admissions, but looking at these notes here, I do not know that these actually had an infection on this occasion. The patient remains confused and disoriented, but does have an episode of nonsustained ventricular tachycardia. The patient previously had been on antibiotics for urinary tract infection with Keflex and also diarrhea. No chest pain or pressure. REVIEW OF SYSTEMS: Not obtainable as he is disoriented. PAST HISTORY: Hypertension, benign prostatic hyperplasia, anemia. PAST SURGICAL HISTORY: Bilateral hip surgery. FAMILY HISTORY: No significant family history. SOCIAL HISTORY: [facility] PHYSICAL EXAMINATION: GENERAL: This is a pleasant elderly gentleman, in no distress. He is oriented to person, but does not know the year or where he is. VITAL SIGNS: His blood pressure is 147/72, pulse 64. LUNGS: Clear. CARDIAC: Normal S1, normal S2. ABDOMEN: Soft, nontender. EXTREMITIES: Warm and dry. No clubbing or cyanosis. There is no edema. PERTINENT LABORATORY DATA: Hemoglobin is 11.8, creatinine is 1.11. Urine cultures were negative, but apparently he was on antibiotics. EKG, sinus rhythm. He did have one episode of 13-beat ventricular tachycardia. It was noted the patient was on reduced dose of Xarelto as an outpatient 10 mg a day, we do not know the definite indication of that, apparently it was DVT prophylaxis. ASSESSMENT: 1. Confusion, disorientation. 2. History of diabetes. 3. Nonsustained ventricular tachycardia. PLAN: 1. Echocardiogram. 2. Start beta blockers. 3. We will follow with you. Job ID: [id number]
[2020-02-15] MEDS: Mirtazapine 15 MG TAB PO SCH (21:33)
[2020-02-16] MEDS: cefTRIAXone\\ROCEPHIN 1 GM in Sodium Chloride 0.9% 100 ML IVPB SCH (02:15)
[2020-02-16 05:55] LABS: Anion Gap 12 mmol/L (10-20); BUN (Urea Nitrogen) 15 mg/dL (8.4-25.7); Calc. Creatinine Clearance 63 mL/min (70-130); Calcium 8.7 mg/dL (7.8-10.44); Carbon Dioxide 25 mmol/L (23-31); Chloride 107 mmol/L (98-107); Estimated GFR-MDRD 64; Glucose 113 mg/dL (83-110); Potassium 4.5 mmol/L (3.5-5.1); Sodium 139 mmol/L (136-145)
--- NOTE | 2020-02-16 06:46 | PDOC.HOSPP ---
- Subjective Encounter Date: 02/15/20 Encounter Time: 09:00 Subjective: Patient seen and examined for AMS. Mentation slightly better. No new complaints. No overnight events - Objective Vital Signs & Weight: Vital Signs (12 hours) Temp Pulse Resp BP Pulse Ox 02/16/20 03:54 97.3 F L 63 18 138/68 93 L 02/15/20 23:51 98.0 F 65 18 140/78 93 L 02/15/20 20:25 98.4 F 67 14 137/65 93 L Weight Weight 205 lb 11.06 oz I&O: 02/14/20 02/15/20 02/16/20 06:59 06:59 06:59 Intake Total 238 1138 Output Total 575 8066 Balance 378 -572 -837 Result Diagrams: 02/14/20 04:19 02/16/20 05:23 Additional Labs: Accuchecks 02/16/20 02/15/20 02/15/20 05:33 20:48 16:53 POC Glucose 117 H 200 H 81 02/15/20 10:43 POC Glucose 154 H EKG Reviewed by me: Yes (Tele NSVT) Hospitalist ROS - Review of Systems ROS unobtainable: due to mental status - Medication Medications: Active Medications Generic Name Dose Route Start Last Admin Trade Name Freq PRN Reason Stop Dose Admin Cyanocobalamin 1,000 mcg 02/14/20 09:00 02/15/20 09:03 Vitamin B-12 PO 1,000 mcg DAILY SHAYLA Administration Ferrous Sulfate 325 mg 02/11/20 09:00 02/15/20 09:02 Feosol PO 325 mg DAILY SHAYLA Administration Glipizide 10 mg 02/11/20 07:30 02/15/20 09:03 Glucotrol PO 10 mg DAILY-AC SHAYLA Administration Glipizide 5 mg 02/11/20 21:00 02/15/20 21:34 Glucotrol PO 5 mg HS SHAYLA Administration Ceftriaxone Sodium 1 gm/ 100 mls @ 200 mls/hr 02/11/20 02:00 02/16/20 02:15 Sodium Chloride IVPB 02/18/20 02:01 100 mls Q24HR SHAYLA Administration Insulin Human Lispro 0 units 02/11/20 01:06 02/15/20 12:32 Humalog SC 2 unit .MILD SLIDING SCALE PRN Administration Mild Correctional Scale Lisinopril 10 mg 02/11/20 09:00 02/15/20 09:03 Zestril PO 10 mg DAILY SHAYLA Administration Mirtazapine 15 mg 02/11/20 21:00 02/15/20 21:33 Remeron PO 15 mg HS SHAYLA Administration Multivitamins 1 tab 02/14/20 09:00 02/15/20 09:03 Theragran PO 1 tab DAILY SHAYLA Administration Pantoprazole Sodium 40 mg 02/11/20 09:00 02/15/20 09:03 Protonix PO 40 mg DAILY SHAYLA Administration Potassium Chloride 20 meq 02/14/20 08:00 02/15/20 18:08 K-Dur PO 20 meq BID-WM SHAYLA Administration Rivaroxaban 10 mg 02/11/20 09:00 02/15/20 09:03 Xarelto PO 10 mg DAILY SHAYLA Administration Saccharomyces Boulardii 250 mg 02/14/20 09:00 02/15/20 09:03 Florastor PO 250 mg DAILY SHAYLA Administration Senna/Docusate Sodium 1 tab 02/11/20 09:00 02/15/20 21:34 Senokot S PO 1 tab BID SHAYLA Administration Sodium Chloride 10 ml 02/11/20 09:00 02/15/20 21:34 Flush - Normal Saline IVF 10 ml Q12HR SHAYLA Administration Tamsulosin HCl 0.4 mg 02/11/20 09:00 02/15/20 09:03 Flomax PO 0.4 mg DAILY SHAYLA Administration - Exam General Appearance: NAD Heart: RRR, no rubs Respiratory: no wheezes, no rales Gastrointestinal: soft, non-tender, non-distended Neurological: no new deficit Psychiatric: oriented to person Hosp A/P - Plan DVT proph w/SCDs Toxic Metabolic Encephalopathy UTI - No urine cultures sent on admission NSVT Hypokalemia Hypomagnesemia PVD Chronic anticoagulation Mechanical fall HTN BPH PLAN: MRI brain/Neuro consult due to no significant improvement in mentation Echo and Cardio consult for NSVT Attempted to call family again - no answer Cont IV Ceftriaxone postvoid residual monitoring Cont Flomax, Lisinopril and other meds as above SNF eval pending AM labs
[2020-02-16] MEDS ORDERED: Regadenoson 0.4 MG/5 ML SYRINGE ONE (09:40)
[2020-02-16] MEDS: Multivit, Therapeutic 1 TAB PO SCH (11:14)
[2020-02-16] MEDS: Rivaroxaban 10 MG TAB PO SCH (11:14)
[2020-02-16] MEDS: Potassium Chloride 20 MEQ TAB PO SCH ×2 (11:15→18:11)
[2020-02-16] MEDS: Cyanocobalamin (Vitamin B-12) 1,000 MCG TAB PO SCH (11:15)
[2020-02-16] MEDS: Saccharomyces boulardii 250 MG CAP PO SCH (11:15)
[2020-02-16] MEDS: Tamsulosin HCl 0.4 MG CAP PO SCH (11:15)
[2020-02-16] MEDS: glipiZIDE 5 MG TAB PO SCH ×2 (11:15→20:49)
[2020-02-16] MEDS: Ferrous Sulfate 325 MG TAB PO SCH (11:15)
[2020-02-16] MEDS: Lisinopril 10 MG TAB PO SCH (11:16)
[2020-02-16] MEDS: Pantoprazole 40 MG GRANULES PACKET PO SCH (11:16)
[2020-02-16] MEDS: Senokot S 8.6-50 MG TAB PO SCH ×2 (11:16→20:49)
--- NOTE | 2020-02-16 11:28 | NM ---
CARDIAC SPECT: CLINICAL HISTORY: 89-year-old male with chest pain, nonsustained ventricular tachycardia, hypertension, diabetes, and p eripheral vascular disease. TECHNIQUE: A myocardial perfusion scan was performed using the single isotope one day protocol with technetium-9 9m sestamibi. 11 mCi were injected intravenously for the rest exam followed by 32 mCi for the stress exam. Pharmacologic stress with Adenosine was monitored and interpreted by Karolina Kapadia NP. FINDINGS: Fairly homogeneous tracer distribution is seen in the myocardial segments on stress and rest images w ithout fixed or reversible defects. GATED SPECT LVEF: 42%. WALL MOTION EXAM: Global hypokinesis. IMPRESSION: No evidence of reversible ischemia. POS: [facility]
--- NOTE | 2020-02-16 11:59 | PDOC.HOSPP ---
- Subjective Encounter Date: 02/16/20 Subjective: NEUROLOGY PROGRESS NOTE No acute events overnight. - Objective Vital Signs & Weight: Vital Signs (12 hours) Temp Pulse Resp BP Pulse Ox 02/16/20 11:48 98.2 F 82 19 170/79 H 96 02/16/20 07:22 98.0 F 65 15 140/65 92 L 02/16/20 03:54 97.3 F L 63 18 138/68 93 L Weight Weight 205 lb 11.06 oz I&O: 02/15/20 02/16/20 02/17/20 06:59 06:59 06:59 Intake Total 1138 Output Total 575 9495 Balance -575 -162 Result Diagrams: 02/14/20 04:19 02/16/20 05:23 Additional Labs: Accuchecks 02/16/20 02/16/20 02/15/20 10:45 05:33 20:48 POC Glucose 144 H 117 H 200 H 02/15/20 16:53 POC Glucose 81 Radiology Reviewed by me: Yes EKG Reviewed by me: Yes Hospitalist ROS - Review of Systems ROS unobtainable: due to mental status Neurological: reports: confusion - Medication Medications: Active Medications Generic Name Dose Route Start Last Admin Trade Name Freq PRN Reason Stop Dose Admin Cyanocobalamin 1,000 mcg 02/14/20 09:00 02/16/20 11:15 Vitamin B-12 PO 1,000 mcg DAILY SHAYLA Administration Ferrous Sulfate 325 mg 02/11/20 09:00 02/16/20 11:15 Feosol PO 325 mg DAILY SHAYLA Administration Glipizide 10 mg 02/11/20 07:30 02/16/20 11:15 Glucotrol PO 10 mg DAILY-AC SHAYLA Administration Glipizide 5 mg 02/11/20 21:00 02/15/20 21:34 Glucotrol PO 5 mg HS SHAYLA Administration Ceftriaxone Sodium 1 gm/ 100 mls @ 200 mls/hr 02/11/20 02:00 02/16/20 02:15 Sodium Chloride IVPB 02/18/20 02:01 100 mls Q24HR SHAYLA Administration Insulin Human Lispro 0 units 02/11/20 01:06 02/15/20 12:32 Humalog SC 2 unit .MILD SLIDING SCALE PRN Administration Mild Correctional Scale Lisinopril 10 mg 02/11/20 09:00 02/16/20 11:16 Zestril PO 10 mg DAILY SHAYLA Administration Metoprolol Succinate 50 mg 02/16/20 09:00 02/16/20 11:15 Toprol Xl PO 50 mg DAILY SHAYLA Administration Mirtazapine 15 mg 02/11/20 21:00 02/15/20 21:33 Remeron PO 15 mg HS SHAYLA Administration Multivitamins 1 tab 02/14/20 09:00 02/16/20 11:14 Theragran PO 1 tab DAILY SHAYLA Administration Pantoprazole Sodium 40 mg 02/11/20 09:00 02/16/20 11:16 Protonix PO 40 mg DAILY SHAYLA Administration Potassium Chloride 20 meq 02/14/20 08:00 02/16/20 11:15 K-Dur PO 20 meq BID-WM SHAYLA Administration Rivaroxaban 10 mg 02/11/20 09:00 02/16/20 11:14 Xarelto PO 10 mg DAILY SHAYLA Administration Saccharomyces Boulardii 250 mg 02/14/20 09:00 02/16/20 11:15 Florastor PO 250 mg DAILY SHAYLA Administration Senna/Docusate Sodium 1 tab 02/11/20 09:00 02/16/20 11:16 Senokot S PO 1 tab BID SHAYLA Administration Sodium Chloride 10 ml 02/11/20 09:00 02/16/20 07:45 Flush - Normal Saline IVF 10 ml Q12HR SHAYLA Administration Tamsulosin HCl 0.4 mg 02/11/20 09:00 02/16/20 11:15 Flomax PO 0.4 mg DAILY SHAYLA Administration - Exam General Appearance: awake alert Eye: PERRL, anicteric sclera ENT: normocephalic atraumatic, no oropharyngeal lesions Neck: supple Heart: RRR Respiratory: CTAB Gastrointestinal: soft Extremities: no cyanosis, no clubbing, no edema Skin: normal turgor, no lesions, no rashes Neurological: cranial nerve grossly intact, normal sensation to touch, no weakness, no focal deficits Musculoskeletal: normal tone, normal strength, no muscle wasting Psychiatric: normal affect, normal behavior, oriented to person (Knows season is summer) Hosp A/P (1) Encephalopathy acute Code(s): G93.40 - ENCEPHALOPATHY, UNSPECIFIED Status: Acute (2) CHI (closed head injury) Code(s): S09.90XA - UNSPECIFIED INJURY OF HEAD, INITIAL ENCOUNTER Status: Acute (3) UTI (urinary tract infection) Status: Acute (4) Chronic anticoagulation Code(s): Z79.01 - CUPOLA MECHANIC (CURRENT) USE OF ANTICOAGULANTS Status: Chronic - Plan PT/OT, speech therapy 89 year old with acute encephalopathy which seems multifactorial mosdt likely metabolic versus UTI. Intracranial process less likely because of negative MRI and EEG. Continue home medications. Continue medical management per primary team and cardiology. PT/OT/Speech. No further recommendations from neurological perspective.
--- NOTE | 2020-02-16 14:36 | RAD ---
EXAM: XR Ba Swallow W/Speech Therap PROVIDED CLINICAL HISTORY: Dysphagia, unspecified. Feeding difficulties. COMPARISON: None FINDINGS: This examination was performed in conjunction with speech pathology, and varying consistencies of bar ium were administered during the exam. Patient demonstrates decrease in formation of the bolus into the posterior pharynx with significant pooling within the vallecula and piriform sinuses prior to ini tiation of the swallowing mechanism. Patient demonstrates severe delay in initiation of the swallowing mechanism. Episode of deep penetration with probable trace aspiration of puree consistency barium was noted during the exam. Fluoroscopy: Time-2.4 minutes Dose-1.227 thakur centimeter squared IMPRESSION: Episode of deep penetration with trace aspiration and severe delay in initiation of the swallowing me chanism.
--- NOTE | 2020-02-16 18:37 | PDOC.HOSPP ---
- Subjective Encounter Date: 02/16/20 Encounter Time: 16:30 Subjective: Patient seen and examined for AMS. Mentation improving. No new complaints. No overnight events - Objective Vital Signs & Weight: Vital Signs (12 hours) Temp Pulse Resp BP Pulse Ox 02/16/20 15:22 98.6 F 60 18 140/92 H 95 02/16/20 11:48 98.2 F 82 19 170/79 H 96 02/16/20 07:22 98.0 F 65 15 140/65 92 L Weight Weight 205 lb 11.06 oz I&O: 02/15/20 02/16/20 02/17/20 06:59 06:59 06:59 Intake Total 1138 Output Total 575 1300 Balance -575 162 Result Diagrams: 02/14/20 04:19 02/16/20 05:23 Additional Labs: Accuchecks 02/16/20 02/16/20 02/16/20 16:53 10:45 05:33 POC Glucose 134 H 144 H 117 H 02/15/20 20:48 POC Glucose 200 H EKG Reviewed by me: Yes (Tele SR) Hospitalist ROS - Review of Systems Respiratory: denies: cough, dry, shortness of breath, hemoptysis, SOB with excertion, pleuritic pain, sputum, wheezing, other Cardiovascular: denies: chest pain, palpitations, orthopnea, paroxysmal noc. dyspnea, edema, light headedness, other - Medication Medications: Active Medications Generic Name Dose Route Start Last Admin Trade Name Freq PRN Reason Stop Dose Admin Cyanocobalamin 1,000 mcg 02/14/20 09:00 02/16/20 11:15 Vitamin B-12 PO 1,000 mcg DAILY SHAYLA Administration Ferrous Sulfate 325 mg 02/11/20 09:00 02/16/20 11:15 Feosol PO 325 mg DAILY SHAYLA Administration Glipizide 10 mg 02/11/20 07:30 02/16/20 11:15 Glucotrol PO 10 mg DAILY-AC SHAYLA Administration Glipizide 5 mg 02/11/20 21:00 02/15/20 21:34 Glucotrol PO 5 mg HS SHAYLA Administration Ceftriaxone Sodium 1 gm/ 100 mls @ 200 mls/hr 02/11/20 02:00 02/16/20 02:15 Sodium Chloride IVPB 02/18/20 02:01 100 mls Q24HR SHAYLA Administration Insulin Human Lispro 0 units 02/11/20 01:06 02/15/20 12:32 Humalog SC 2 unit .MILD SLIDING SCALE PRN Administration Mild Correctional Scale Lisinopril 10 mg 02/11/20 09:00 02/16/20 11:16 Zestril PO 10 mg DAILY SHAYLA Administration Metoprolol Succinate 50 mg 02/16/20 09:00 02/16/20 11:15 Toprol Xl PO 50 mg DAILY SHAYLA Administration Mirtazapine 15 mg 02/11/20 21:00 02/15/20 21:33 Remeron PO 15 mg HS SHAYLA Administration Multivitamins 1 tab 02/14/20 09:00 02/16/20 11:14 Theragran PO 1 tab DAILY SHAYLA Administration Pantoprazole Sodium 40 mg 02/11/20 09:00 02/16/20 11:16 Protonix PO 40 mg DAILY SHAYLA Administration Potassium Chloride 20 meq 02/14/20 08:00 02/16/20 18:11 K-Dur PO 20 meq BID-WM SHAYLA Administration Rivaroxaban 10 mg 02/11/20 09:00 02/16/20 11:14 Xarelto PO 10 mg DAILY SHAYLA Administration Saccharomyces Boulardii 250 mg 02/14/20 09:00 02/16/20 11:15 Florastor PO 250 mg DAILY SHAYLA Administration Senna/Docusate Sodium 1 tab 02/11/20 09:00 02/16/20 11:16 Senokot S PO 1 tab BID SHAYLA Administration Sodium Chloride 10 ml 02/11/20 09:00 02/16/20 07:45 Flush - Normal Saline IVF 10 ml Q12HR SHAYLA Administration Tamsulosin HCl 0.4 mg 02/11/20 09:00 02/16/20 11:15 Flomax PO 0.4 mg DAILY SHAYLA Administration - Exam General Appearance: NAD Heart: RRR, no gallops Respiratory: no wheezes, no ronchi Gastrointestinal: soft, non-tender, non-distended, normal bowel sounds Extremities: no cyanosis, no clubbing Hosp A/P - Plan Toxic Metabolic Encephalopathy - improving UTI - No urine cultures sent on admission NSVT - started on Toprol Hypokalemia Hypomagnesemia PVD Chronic anticoagulation Mechanical fall HTN BPH Swallow dysfunction PLAN: Cont Toprol Cont IV Ceftriaxone Cont Flomax, Lisinopril Cont other meds as above Change Potassium to 10 meq daily AM labs No reversible ischemia on stress test
[2020-02-16] MEDS: Mirtazapine 15 MG TAB PO SCH (20:49)
[2020-02-17] MEDS: cefTRIAXone\\ROCEPHIN 1 GM in Sodium Chloride 0.9% 100 ML IVPB SCH (01:28)
[2020-02-17 05:04] LABS: Eosinophils 4 % (0-10); Hemoglobin 12.7 g/dL (14.0-18.0); Lymphocytes 33 % (21-51); MDiff Complete? YES; Mean Corpuscular HGB CONC 32.6 g/dL (32.0-36.0); Mean Corpuscular Hemoglobin 30.9 pg (27.0-31.0); Mean Platelet Volume 7.3 fL (7.4-10.4); Monocytes 9 % (0-10); Neutrophil 54 % (42-75); Platelet Count 121 thou/uL (130-400); Platelet Morphology Comment Appears Decreased; White Blood Cell (WBC) Count 5.3 thou/uL (4.8-10.8)
[2020-02-17 05:19] LABS: Anion Gap 12 mmol/L (10-20); Carbon Dioxide 26 mmol/L (23-31); Chloride 106 mmol/L (98-107); Potassium 4.5 mmol/L (3.5-5.1); Sodium 139 mmol/L (136-145)
[2020-02-17 05:20] LABS: BUN (Urea Nitrogen) 16 mg/dL (8.4-25.7); Calc. Creatinine Clearance 66 mL/min (70-130); Calcium 8.9 mg/dL (7.8-10.44); Estimated GFR-MDRD 68; Glucose 123 mg/dL (83-110)
[2020-02-17 07:25] VITALS: TEMP 98.1
[2020-02-17] MEDS ORDERED: Potassium Chloride 10 MEQ TAB PO SCH (08:00)
[2020-02-17] MEDS: Senokot S 8.6-50 MG TAB PO SCH (09:41)
[2020-02-17] MEDS: glipiZIDE 5 MG TAB PO SCH (09:41)
[2020-02-17] MEDS: Ferrous Sulfate 325 MG TAB PO SCH (09:41)
[2020-02-17] MEDS: Rivaroxaban 10 MG TAB PO SCH (09:41)
[2020-02-17] MEDS: Cyanocobalamin (Vitamin B-12) 1,000 MCG TAB PO SCH (09:41)
[2020-02-17] MEDS: Multivit, Therapeutic 1 TAB PO SCH (09:41)
[2020-02-17] MEDS: Pantoprazole 40 MG GRANULES PACKET PO SCH (09:41)
[2020-02-17] MEDS: Saccharomyces boulardii 250 MG CAP PO SCH (09:41)
[2020-02-17] MEDS: Tamsulosin HCl 0.4 MG CAP PO SCH (09:42)
[2020-02-17] MEDS: Lisinopril 10 MG TAB PO SCH (09:43)
[2020-02-17 11:29] VITALS: BP 133/67
--- NOTE | 2020-02-17 11:29 | DIS ---
DATE OF ADMISSION: 02/11/2020 DATE OF DISCHARGE: 02/17/2020 DISCHARGE DISPOSITION: To [facility]. The patient was seen and examined on the day of discharge. Denies any new complaints. No chest pain, shortness of breath, palpitations reported. DISCHARGE MEDICATIONS: Toprol-XL 50 mg daily. All other home medications were left unchanged. Please note that the patient has completed antibiotic. BRIEF HOSPITAL COURSE: The patient is an 89-year-old male with diabetes mellitus type 2, hypertension and dementia, presented to the hospital on February 10, 2020, with altered mentation. He was recently diagnosed with UTI. He was found to be lethargic in his bathroom. Please refer to the history and physical for further details. The patient was admitted to the Stroke Unit with a diagnosis of altered mentation, rule out CVA. He was started on empiric antibiotics. His mentation gradually improved. He was evaluated by Physical Therapy and Occupational Therapy as well. He was evaluated by Neurology as well. Stroke was ruled out. He also had an EEG, that did not show any seizure activity. MRI of the brain was negative for acute CVA. The patient developed nonsustained ventricular tachycardia, for which he was evaluated by Cardiology, Dr. Boswell. Echocardiogram showed normal left ventricular ejection fraction of 55% to 60% with trace tricuspid regurgitation. He also underwent stress test, that was negative for reversible ischemia. He underwent modified barium swallow yesterday. He will be discharged to [facility] residential [facility]. Please note, the patient was in assisted living facility prior to admission. FINAL DIAGNOSES: 1. Toxic metabolic encephalopathy, suspected due to urinary tract infection, slowly improving. 2. Nonsustained ventricular tachycardia. The patient is started on Toprol-XL. 3. Hypokalemia, replaced. 4. Hypomagnesemia, replaced. 5. Peripheral vascular disease. 6. Chronic anticoagulation. 7. Mechanical fall. 8. Hypertension. 9. Benign prostatic hypertrophy. 10. Swallow dysfunction. SIGNIFICANT LABORATORY DATA: WBC count of 9.6 with hemoglobin of 13.9 with 76% neutrophil. Lowest potassium was 3.4. TIME SPENT: Time coordinating the discharge of this patient was 35 minutes. Job ID: [id number]
== END 2020-02-17 13:40 | DRG 689 ==
LOC: ERS 17:53 → 2SE 23:41 → OBSVTOIN 02-11 03:42
PROVIDERS: ADMIT Internal Medicine; ATTEND Internal Medicine
DX: N39.0 Urinary tract infection, site not specified (principal); G92 Toxic encephalopathy; I47.2 Ventricular tachycardia; I10 Essential (primary) hypertension; F03.90 Unspecified dementia, unspecified severity, without behavioral disturbance, psychotic disturbance, mood disturbance, and anxiety; E87.6 Hypokalemia; E83.42 Hypomagnesemia; N40.0 Benign prostatic hyperplasia without lower urinary tract symptoms; L89.151 Pressure ulcer of sacral region, stage 1; E11.51 Type 2 diabetes mellitus with diabetic peripheral angiopathy without gangrene; D64.9 Anemia, unspecified; Z79.899 Other long term (current) drug therapy; Z79.84 Long term (current) use of oral hypoglycemic drugs; Z79.01 Long term (current) use of anticoagulants
CPT/HCPCS: 36415; 36416; 51701; 70450; 70551; 71045; 74230; 78452; 80048; 80053; 81003; 81015; 82140; 82550; 83735; 84443; 84484; 85025; 93005; 93017; 93306; 95816; 95819; A9500; J0696; J2785; J3475; J3490

== ENCOUNTER 2021-02-02 00:31 | Emergency (ER) | payer MEDICARE ==
[2021-02-02] MEDS ORDERED: predniSONE 20 MG TAB ONE (00:59)
[2021-02-02 01:24] LABS: Actual Bicarbonate (HCO3v) 22 mEq/L (22-28); Analyzer IN Cardio ER; Base Excess -2.7 mEq/L (-2.0 to +3.0); Calcium, Ionized (venous) 1.12 mmol/L (1.16-1.32); Chloride (VBG) 105 mmol/L (98-106); Hemoglobin (Hb) 12.1 g/dL (12.6-17.4); Potassium (VBG) 3.97 mmol/L (3.70-5.30); Sodium 138.6 mmol/L (133-146); pH (venous) 7.38 (7.32-7.43)
[2021-02-02 01:35] LABS: #Eosinphils 0.3 thou/uL (0.0-0.7); #Lymphocytes 3.1 thou/uL (1.20-3.40); #Monocytes 0.6 thou/uL (0.11-0.59); #Neutrophils 3.3 thou/uL (1.40-6.50); %Basophils 0.7 % (0.0-1.0); %Eosinophils 3.6 % (0.0-10.0); %Lymphocytes 42.4 % (21.0-51.0); %Monocytes 8.7 % (0.0-10.0); %Neutrophils 44.8 % (42.0-75.0); Hemoglobin 11.9 g/dL (14.0-18.0); Mean Corpuscular HGB CONC 33.9 g/dL (32.0-36.0); Mean Corpuscular Hemoglobin 32.8 pg (27.0-31.0); Mean Corpuscular Volume 96.6 fL (78.0-98.0); Mean Platelet Volume 6.3 fL (7.4-10.4); Platelet Count 117 thou/uL (130-400); RBC Distribution Width 11.8 % (11.5-14.5); Red Blood Cell (RBC) Count 3.63 mill/uL (4.70-6.10); White Blood Cell (WBC) Count 7.3 thou/uL (4.8-10.8)
[2021-02-02 01:53] LABS: ALT (SGPT) 12 U/L (8-55); AST (SGOT) 15 U/L (5-34); Albumin 3.5 g/dL (3.4-4.8); Alkaline Phosphatase 67 U/L (40-110); Anion Gap 11 mmol/L (10-20); BUN (Urea Nitrogen) 25 mg/dL (8.4-25.7); Bilirubin, Total 0.3 mg/dL (0.2-1.2); Calc. Creatinine Clearance 0 mL/min (70-130); Calcium 9.2 mg/dL (7.8-10.44); Carbon Dioxide 25 mmol/L (23-31); Chloride 106 mmol/L (98-107); Globulin 3.1 g/dL (2.4-3.5); Glucose 172 mg/dL (83-110); Potassium 3.9 mmol/L (3.5-5.1); Protein, Total 6.6 g/dL (5.8-8.1); Sodium 138 mmol/L (136-145)
== END 2021-02-02 02:38 ==
LOC: ERS 00:31
DX: J44.1 Chronic obstructive pulmonary disease with (acute) exacerbation (principal); D64.9 Anemia, unspecified; E11.51 Type 2 diabetes mellitus with diabetic peripheral angiopathy without gangrene; I10 Essential (primary) hypertension; N40.0 Benign prostatic hyperplasia without lower urinary tract symptoms; Z79.01 Long term (current) use of anticoagulants; Z79.899 Other long term (current) drug therapy; Z79.84 Long term (current) use of oral hypoglycemic drugs
CPT/HCPCS: 36415; 71045; 80053; 82805; 83880; 84484; 85025; 93005; J7512; J7620

== ENCOUNTER 2022-05-30 01:23 | Inpatient (IN) | payer MEDICARE ==
[2022-05-30 01:49] LABS: #Lymphocytes 0.5 thou/uL (1.20-3.40); %Basophils 0.1 % (0.0-1.0); %Eosinophils 0.1 % (0.0-10.0); %Lymphocytes 3.5 % (21.0-51.0); %Neutrophils 89.3 % (42.0-75.0); Hemoglobin 12.1 g/dL (14.0-18.0); Mean Corpuscular HGB CONC 34.9 g/dL (32.0-36.0); Mean Corpuscular Hemoglobin 32.6 pg (27.0-31.0); Mean Corpuscular Volume 93.3 fL (78.0-98.0); Mean Platelet Volume 7.1 fL (7.4-10.4); Platelet Count 137 thou/uL (130-400); RBC Distribution Width 12.3 % (11.5-14.5); White Blood Cell (WBC) Count 14.6 thou/uL (4.8-10.8)
[2022-05-30 01:57] LABS: INR-International Normal Ratio 1.8; PTT 62.7 sec (22.9-36.1); Prothrombin Time 21.3 sec (12.0-14.7)
[2022-05-30 02:13] LABS: ALT (SGPT) 167 U/L (8-55); AST (SGOT) 119 U/L (5-34); Albumin 3.7 g/dL (3.4-4.8); Alkaline Phosphatase 211 U/L (40-110); Anion Gap 20 mmol/L (10-20); BUN (Urea Nitrogen) 34 mg/dL (8.4-25.7); Bilirubin, Total 0.8 mg/dL (0.2-1.2); Calc. Creatinine Clearance 0 mL/min (70-130); Carbon Dioxide 23 mmol/L (23-31); Chloride 97 mmol/L (98-107); Estimated GFR 43; Globulin 3.4 g/dL (2.4-3.5); Glucose 319 mg/dL (83-110); Potassium 5.5 mmol/L (3.5-5.1); Protein, Total 7.1 g/dL (5.8-8.1); Sodium 134 mmol/L (136-145)
[2022-05-30] MEDS ORDERED: Pantoprazole 40 MG VIAL ONE (02:26)
[2022-05-30] MEDS ORDERED: Ondansetron PF 4 MG/2 ML Vial ONE ×2 (02:26→02:46)
[2022-05-30] MEDS ORDERED: HUM PROTHROMBIN CPLX IV SCH ×2 (02:30→02:45)
[2022-05-30] MEDS ORDERED: [UNRECOGNIZED DRUG - OTHER] IV SCH (02:30)
[2022-05-30] MEDS ORDERED: HUMAN PROTHROMBIN COMPLX IV SCH ×2 (02:30→02:45)
[2022-05-30] MEDS ORDERED: [UNRECOGNIZED DRUG - OTHER] IV SCH (02:45)
[2022-05-30 03:23] LABS: SARS-CoV-2 NAA Rapid Test Not Detected (NotDetected)
[2022-05-30 04:47] LABS: Lactic Acid 3.9 mmol/L (0.5-2.2)
[2022-05-30] MEDS ORDERED: hydrALAZINE 20 MG/ML VIAL SLOW IVP PRN (10:05)
[2022-05-30] MEDS ORDERED: Ondansetron PF 4 MG/2 ML Vial IVP PRN (10:05)
[2022-05-30] MEDS ORDERED: Dextrose 5% in Water 1,000 ML IV PRN (10:05)
[2022-05-30] MEDS ORDERED: Dextrose 50% Abboject 50 ML SYRINGE SLOW IVP PRN (10:05)
[2022-05-30] MEDS ORDERED: HumaLOG 300 UNITS/3 ML VIAL SC PRN (10:05)
[2022-05-30 10:13] VITALS: BMI 30.4
[2022-05-30] MEDS ORDERED: Piperacillin/Tazobactam 3.375 GM in Sodium Chloride 0.9% 100 ML IVPB SCH (10:15)
[2022-05-30] MEDS: Sodium Chloride 0.9% 1,000 ML IV SCH (11:41)
[2022-05-30] MEDS ORDERED: Iopamidol-370 76% 500 ML 1 ML ONE (13:53)
[2022-05-30] MEDS: Metoclopramide HCl 10 MG/2 ML VIAL IVP SCH ×2 (14:05→20:44)
[2022-05-30] MEDS: Piperacillin/Tazobactam 3.375 GM in Sodium Chloride 0.9% 100 ML IVPB SCH ×2 (16:01→23:03)
[2022-05-30] MEDS: Pantoprazole 40 MG VIAL IVP SCH (20:43)
[2022-05-31] MEDS: Piperacillin/Tazobactam 3.375 GM in Sodium Chloride 0.9% 100 ML IVPB SCH ×3 (05:33→22:14)
[2022-05-31] MEDS: Metoclopramide HCl 10 MG/2 ML VIAL IVP SCH ×3 (05:33→20:59)
[2022-05-31] MEDS: Sodium Chloride 0.9% 1,000 ML IV SCH ×2 (05:40→13:25)
[2022-05-31 07:09] LABS: Anion Gap 14 mmol/L (10-20); BUN (Urea Nitrogen) 47 mg/dL (8.4-25.7); Calc. Creatinine Clearance 43 mL/min (70-130); Calcium 8.3 mg/dL (7.8-10.44); Carbon Dioxide 24 mmol/L (23-31); Chloride 105 mmol/L (98-107); Estimated GFR 43; Glucose 122 mg/dL (83-110); Potassium 4.2 mmol/L (3.5-5.1); Sodium 139 mmol/L (136-145)
[2022-05-31 07:13] LABS: ALT (SGPT) 68 U/L (8-55); AST (SGOT) 26 U/L (5-34); Albumin 2.8 g/dL (3.4-4.8); Alkaline Phosphatase 97 U/L (40-110); Bilirubin, Direct 0.4 mg/dL (0.1-0.3); Bilirubin, Total 0.7 mg/dL (0.2-1.2); Protein, Total 5.5 g/dL (5.8-8.1)
[2022-05-31] MEDS: Pantoprazole 40 MG VIAL IVP SCH ×2 (08:11→20:59)
[2022-05-31 08:26] LABS: #Lymphocytes 1.3 thou/uL (1.20-3.40); #Monocytes 0.7 thou/uL (0.11-0.59); #Neutrophils 5.3 thou/uL (1.40-6.50); %Basophils 0.1 % (0.0-1.0); %Eosinophils 0.2 % (0.0-10.0); %Lymphocytes 17.4 % (21.0-51.0); %Neutrophils 73.2 % (42.0-75.0); Band 24 % (5-11); Eosinophils 2 % (0-10); Hemoglobin 9.4 g/dL (14.0-18.0); Lymphocytes 20 % (21-51); MDiff Complete? YES; Mean Corpuscular Volume 96.8 fL (78.0-98.0); Mean Platelet Volume 7.3 fL (7.4-10.4); Monocytes 10 % (0-10); Neutrophil 44 % (42-75); Platelet Count 106 thou/uL (130-400); Platelet Morphology Comment Appears Decreased; RBC Distribution Width 12.2 % (11.5-14.5); RBC Morphology Normal; Red Blood Cell (RBC) Count 2.93 mill/uL (4.70-6.10); White Blood Cell (WBC) Count 7.2 thou/uL (4.8-10.8)
[2022-05-31] MEDS ORDERED: Amino Acids 4.25 %/Dextrose 5% 2,000 ML BAG IV SCH (15:00)
[2022-05-31] MEDS: Amino Acids 4.25 %/Dextrose 5% 1,000 ML IV SCH (16:27)
[2022-06-01] MEDS: Metoclopramide HCl 10 MG/2 ML VIAL IVP SCH ×3 (05:29→21:28)
[2022-06-01] MEDS: Piperacillin/Tazobactam 3.375 GM in Sodium Chloride 0.9% 100 ML IVPB SCH ×3 (05:29→23:22)
[2022-06-01] MEDS: Sodium Chloride 0.9% 1,000 ML IV SCH ×2 (05:29→20:14)
[2022-06-01] MEDS: Pantoprazole 40 MG VIAL IVP SCH ×2 (08:29→20:13)
[2022-06-01] MEDS: HumaLOG 300 UNITS/3 ML VIAL SC PRN ×2 (12:37→16:57)
[2022-06-01] MEDS: Amino Acids 4.25 %/Dextrose 5% 1,000 ML IV SCH (12:38)
[2022-06-02] MEDS: Metoclopramide HCl 10 MG/2 ML VIAL IVP SCH ×2 (05:59→14:15)
[2022-06-02] MEDS: Piperacillin/Tazobactam 3.375 GM in Sodium Chloride 0.9% 100 ML IVPB SCH ×2 (06:00→14:15)
[2022-06-02 07:04] LABS: #Lymphocytes 1.2 thou/uL (1.20-3.40); #Monocytes 0.6 thou/uL (0.11-0.59); #Neutrophils 4.4 thou/uL (1.40-6.50); %Basophils 0.2 % (0.0-1.0); %Eosinophils 0.3 % (0.0-10.0); %Lymphocytes 19.2 % (21.0-51.0); %Monocytes 9.3 % (0.0-10.0); Hemoglobin 8.5 g/dL (14.0-18.0); Mean Corpuscular HGB CONC 33.1 g/dL (32.0-36.0); Mean Corpuscular Volume 96.6 fL (78.0-98.0); Mean Platelet Volume 6.9 fL (7.4-10.4); Platelet Count 123 thou/uL (130-400); RBC Distribution Width 11.9 % (11.5-14.5); Red Blood Cell (RBC) Count 2.66 mill/uL (4.70-6.10); White Blood Cell (WBC) Count 6.2 thou/uL (4.8-10.8)
[2022-06-02 07:31] LABS: ALT (SGPT) 34 U/L (8-55); AST (SGOT) 15 U/L (5-34); Albumin 2.7 g/dL (3.4-4.8); Alkaline Phosphatase 72 U/L (40-110); Anion Gap 13 mmol/L (10-20); BUN (Urea Nitrogen) 32 mg/dL (8.4-25.7); Bilirubin, Total 0.5 mg/dL (0.2-1.2); Calc. Creatinine Clearance 59 mL/min (70-130); Calcium 8.1 mg/dL (7.8-10.44); Carbon Dioxide 22 mmol/L (23-31); Chloride 110 mmol/L (98-107); Estimated GFR 62; Globulin 2.9 g/dL (2.4-3.5); Glucose 173 mg/dL (83-110); Potassium 3.6 mmol/L (3.5-5.1); Protein, Total 5.6 g/dL (5.8-8.1); Sodium 141 mmol/L (136-145)
[2022-06-02] MEDS: Amino Acids 4.25 %/Dextrose 5% 1,000 ML IV SCH (09:38)
[2022-06-02] MEDS: Pantoprazole 40 MG VIAL IVP SCH (09:38)
[2022-06-02] MEDS: Sodium Chloride 0.9% 1,000 ML IV SCH (09:38)
[2022-06-02 16:49] VITALS: BP 129/67; TEMP 97.6
[2022-06-02] MEDS ORDERED: Amoxicillin/Potassium Clav 600 mg/5 ml Oral Suspension PO SCH (21:00)
== END 2022-06-02 18:08 | DRG 377 ==
LOC: ERS 01:23 → T4-A 05:45
PROVIDERS: ADMIT Student in an Organized Health Care Education/Training Program; ATTEND Student in an Organized Health Care Education/Training Program
PROC: 30283B1 Transfusion of Nonautologous 4-Factor Prothrombin Complex Concentrate into Vein, Percutaneous Approach (ICD-10-PCS; 2022-05-30)
PROC: 3E0336Z Introduction of Nutritional Substance into Peripheral Vein, Percutaneous Approach (ICD-10-PCS; principal; 2022-05-31)
DX: K92.0 Hematemesis (principal); J69.0 Pneumonitis due to inhalation of food and vomit; D62 Acute posthemorrhagic anemia; D68.32 Hemorrhagic disorder due to extrinsic circulating anticoagulants; I48.20 Chronic atrial fibrillation, unspecified; G93.40 Encephalopathy, unspecified; N17.9 Acute kidney failure, unspecified; Z66 Do not resuscitate; Z20.822 Contact with and (suspected) exposure to COVID-19; F03.90 Unspecified dementia, unspecified severity, without behavioral disturbance, psychotic disturbance, mood disturbance, and anxiety; E11.51 Type 2 diabetes mellitus with diabetic peripheral angiopathy without gangrene; E11.43 Type 2 diabetes mellitus with diabetic autonomic (poly)neuropathy; T45.515A Adverse effect of anticoagulants, initial encounter; K31.84 Gastroparesis; N40.0 Benign prostatic hyperplasia without lower urinary tract symptoms; I11.0 Hypertensive heart disease with heart failure; I50.9 Heart failure, unspecified; Z79.01 Long term (current) use of anticoagulants; Z87.820 Personal history of traumatic brain injury
CPT/HCPCS: 36415; 36416; 71045; 71275; 74177; 80048; 80053; 80076; 83605; 83880; 84484; 85025; 85610; 85730; 86850; 86900; 86901; 87040; 93005; 94760; 96374; 96375; C9113; J1815; J2405; J2543; J2765; J3490; J7050; J7168; Q9967; U0002; U0003; U0005